=== PATIENT | female | born 1985 | race Caucasian/White ===

== ENCOUNTER → 2018-04-09 11:50 | Outpatient (CLI) | payer MEDICAID, SELFPAY ==
[2018-04-09 13:56] LABS: Absolute Lymphocyte Count 3.28 X10^3/ul (0.83-4.51); Absolute Neutrophil Count 7.2 X10^3/uL (2.0-7.7); Basophil# 0.03 X10^3/uL; Basophil% 0.3 % (0-1); Eosinophil# 0.28 X10^3/uL; Eosinophils% 2.4 % (0-5); Hematocrit 42.1 % (37-47); Hemoglobin 14.1 g/dl (12.0-15.0); Lymphocyte # 3.28 X10^3/ul (4.0); Lymphocyte % 28.5 % (19-41); Mean Corp Hgb Conc 33.5 g/gl (32-36); Mean Corpuscular Hgb 29.6 pg (27.0-32.0); Mean Corpuscular Volume 88.3 fL (81-99); Mean Platelet Vol. 9.8 fl (6.2-12.0); Monocyte# 0.71 X10^3/uL; Monocyte% 6.2 % (0-10); Neutrophil # 7.19 X10^3/uL (2.7-7.7); Neutrophil % 62.4 % (47-70); POSITIVE COUNT NO; POSITIVE DIFFERENTIAL NO; POSITIVE MORPHOLOGY NO; Platelet Count 423 K/mm3 (150-450); RBC Distribution Width CV 12.7 % (11.6-14.6); RBC Distribution Width SD 40.9 fl (35.1-43.9); Red Blood Count 4.77 M/mm3 (4.2-5.4); White Blood Count 11.5 K/mm3 (4.4-11.0)
[2018-04-09 14:39] LABS: Anion Gap 7 (5-15); BUN 6 mg/dL (7-18); BUN/Creat Ratio 7.7 RATIO (10-20); Calcium,Total 9.2 mg/dL (8.5-10.1); Chloride 108 mmol/L (98-107); Creatinine, Serum 0.78 mg/dL (0.55-1.02); EST Glomerular Filtration Rate 91 mL/min (>60); Est Glom Filt Rate - Afr Amer 111 mL/min (>60); Ferritin 93 ng/mL (8-252); Glucose 84 mg/dL (74-106); Iron 55 ug/dL (50-170); Potassium 3.9 mmol/L (3.5-5.1); Sodium Level 141 mmol/L (136-145); Thyroid Stim Hormone (TSH) 1.46 uIU/mL (0.358-3.74)
== END ==
PROVIDERS: Visit Provider Family Medicine
DX: D50.9 Iron deficiency anemia, unspecified (principal); N92.6 Irregular menstruation, unspecified; G25.81 Restless legs syndrome; R31.9 Hematuria, unspecified; R10.2 Pelvic and perineal pain
CPT/HCPCS: 36415; 80048; 82728; 83540; 84443; 85025; 87086

== ENCOUNTER → 2018-06-24 13:02 | Outpatient (CLI) | payer MEDICAID, SELFPAY ==
[2018-06-24 15:07] LABS: M R Staph aureus DNA By PCR Negative (Negative); Probe Check PASS; Specimen Processing Control PASS
== END ==
PROVIDERS: Family Provider Family Medicine; PCP Family Medicine; Visit Provider Family Medicine
DX: Z20.818 Contact with and (suspected) exposure to other bacterial communicable diseases (principal)
CPT/HCPCS: 87641

== ENCOUNTER 2018-07-02 02:57 | Emergency (ER) | payer MEDICAID, SELFPAY ==
[2018-07-02 02:57] VITALS: BP 117/62; PULSE 71; RESP 18; TEMP 36.8; O2SAT 99; BMI 40.2
--- NOTE | 2018-07-02 03:52 | ED.VIS.GEN ---
History of Present Illness Chief Complaint: Dental Informant: Patient Onset: Weeks - 2+ Context: Gradual Onset Timing: Continuous Quality: ache/throb Location: right maxillary molar Current Severity: Severe Maximum Severity: Severe Worsened by: eating, palpation, worse after root canal yesterday by dentist Relieved by: nothing Associated Symptoms: swelling in right face Narrative: Has seen dentist several times for this painful tooth in the past couple weeks. Had a root canal yesterday, pain is worse. Placed on clindamycin by her dentist for this tooth being infected and has been on it for 2 days, she thinks it is 300 mg twice a day but unknown for how many days. Past Medical History - Allergies and Home Meds Allergies/Adverse Reactions: Allergies No Known Allergies Allergy (Verified 07/02/18 03:00) Primary Care Physician: Raoul Hsu DO [Primary Care Provider] - Past Medical History: None Smoking Status: Current every day smoker Review of Systems General: Denies: Chills, Fever ENT: Reports: - - Right maxillary dental pain. Right facial swelling.. Denies: Bilateral ear pain, Rhinorrhea, Sore throat Respiratory: Denies: Dyspnea, Cough Gastrointestinal: Denies: Nausea, Vomiting Physical Exam Vital Signs/Narrative: Vital Signs Temp Pulse Resp BP Pulse Ox 07/02/18 02:57 98.3 F 71 18 117/62 99 Inital Vital Signs reviewed: Yes General: Well nourished, Well developed Head: Normocephalic, Atraumatic Eyes: Perrl, EOMI ENT: Moist mucous membranes, No rhinorrhea, - - Mild right facial swelling, nonfocal. Mild trismus. No fluctuance or palpable collection. Tender tooth #2, I believe. I do not think it is a wisdom tooth. It appears to have a ceramic filling within it. There is no gingival abnormality or bleeding or any other gross abnormality on inspection of the tooth. No parotid tenderness or discharge from Stensen's duct.. Negative for: Sinus tenderness Neck: Supple, - - Mild right preauricular lymphadenopathy that is tender Respiratory: No distress Neurological: Alert, Oriented x3, Cranial nerves II-XII grossly intact, Normal Strength, Normal Sensation, Normal Gait Psychological: Normal affect Diagnostic/Tx/Re-eval - Medical Decision Making I do not know how many days that she is on clindamycin, but I recommend trying to increase the frequency to 3 times daily if she is able. I gave her a dose of 300 mg here. Oars shows no recent narcotics, given a short course of Townsend for pain and advised to follow-up with her dentist. ED Disposition - Plan for ED Patient: Disposition: Home or Assisted Living Chief Complaint: Dental Diagnosis: Odontalgia, Dental infection Instructions: ED Tooth Pain, ED Cavity Dental Prescriptions: Hydrocodone/Acetaminophen [[place] 5-325 Tablet] 1 - 2 ea PO 4X/DAY PRN PRN 3 Days #12 tab PRN Reason: Pain Referrals: Dentist,Your [STAFF PHYSICIAN] - As soon as possible
[2018-07-02] MEDS: Clindamycin HCl 150 MG Capsule 300 MG PO (03:59)
[2018-07-02] MEDS: HYDROcodone Bitartrate/Apap 5/325 Tablet PO (03:59)
[2018-07-02] MEDS: Naproxen 500 MG Tablet PO (03:59)
[2018-07-02 04:04] VITALS: BP 117/71; PULSE 71; RESP 18
== END 2018-07-02 04:05 | disposition home or self-care (01) ==
PROVIDERS: Emergency Provider Emergency Medicine; Family Provider Family Medicine; PCP Family Medicine
DX: K04.7 Periapical abscess without sinus (principal); K08.89 Other specified disorders of teeth and supporting structures; Z98.818 Other dental procedure status; F17.200 Nicotine dependence, unspecified, uncomplicated
CPT/HCPCS: 99283

== ENCOUNTER 2019-09-06 07:10 | Inpatient (IN) | payer MEDICAID, SELFPAY ==
[2019-09-06 08:26] VITALS: BMI 40.8
[2019-09-06] MEDS: Lactated Ringers 1,000 ML 50 ML IV (09:30)
[2019-09-06 10:03] LABS: Absolute Lymphocyte Count 1.98 X10^3/uL (0.83-4.51); Absolute Neutrophil Count 10.1 X10^3/uL (2.0-7.7); Basophil# 0.03 X10^3/uL; Basophil% 0.2 % (0-1); Eosinophil# 0.27 X10^3/uL; Eosinophils% 2.1 % (0-5); Hematocrit 34.4 % (37-47); Hemoglobin 11.5 g/dL (12.0-15.0); Lymphocyte # 1.98 X10^3/ul (4.0); Lymphocyte % 15.1 % (19-41); Mean Corp Hgb Conc 33.4 g/dL (32-36); Mean Corpuscular Hgb 29.3 pg (27.0-32.0); Mean Corpuscular Volume 87.5 fL (81-99); Mean Platelet Vol. 9.5 fl (6.2-12.0); Monocyte# 0.66 X10^3/uL; NRBC Flagged by Analyzer 0 % (0-5); Neutrophil # 10.11 X10^3/uL (2.7-7.7); Neutrophil % 77.1 % (47-70); Platelet Count 383 K/mm3 (150-450); RBC Distribution Width CV 14.2 % (11.6-14.6); Red Blood Count 3.93 M/mm3 (4.2-5.4); White Blood Count 13.1 K/mm3 (4.4-11.0)
[2019-09-06] MEDS: 0.9% Normal Saline 100 ML IV.SOLN. IY (11:10)
[2019-09-06] MEDS: Oxytocin 30 units/NS 500 ml 30 UNITS/500 ML IV.SOLN IV (13:00)
--- NOTE | 2019-09-06 13:25 | PCM.PN.BLA ---
Progress Note S: Patient comfortable O: cvx - /-2 AROM clear fluid fhts 135 with mod variability, accels tocos irregular A&P: continue induction - just started pitocin
[2019-09-06] MEDS: Lactated Ringers 500 ML 999 ML IV (13:27)
[2019-09-06] MEDS: fentaNYL-bupivacaine (epidural) 100 ML BAG EPIDURAL ×3 (14:11→23:16)
[2019-09-06] MEDS: Lactated Ringers 1,000 ML 200 ML IV ×2 (18:14→23:15)
[2019-09-06] MEDS: Acetaminophen 325 MG Tablet PO (23:11)
[2019-09-07] MEDS: fentaNYL-bupivacaine (epidural) 100 ML BAG EPIDURAL ×3 (04:16→17:20)
[2019-09-07] MEDS: Lactated Ringers 1,000 ML 200 ML IV ×2 (04:16→09:28)
--- NOTE | 2019-09-07 08:29 | PCM.HP.OB ---
History Date of Admission: 09/06/19 Final YOUNG: 09/11/19 Final YOUNG Source: US <20 weeks Gestational age: 39 Weeks and 3 Days History of this : This is a 33 year-old, G4, P3 at 39-3/7 weeks gestation for induction of labor due to maternal discomfort, tobacco use in , and maternal obesity with BMI of 40. She denies any gross vaginal bleeding or leaking of fluid. She is had good movement. This has been complicated by an abnormal 1 hour, but she had a normal 3-hour GTT, she has a history of depression, abnormal Pap smears, migraines, she smoked throughout the , she has a history of eating disorder and also history of THC use in the past but denied any use during . Allergies No Known Allergies Allergy (Verified 09/06/19 08:27) Home Medications: Home Medications Cetirizine HCl [All Day Allergy] 10 mg PO DAILY 07/02/18 Citalopram [Celexa] 20 mg PO DAILY 07/02/18 Clindamycin [Cleocin] 300 mg PO BID 07/02/18 Hydrocodone/Acetaminophen [[place] 5-325 Tablet] 1 - 2 ea PO 4X/DAY PRN PRN 3 Days #12 tab 07/02/18 Omeprazole 20 mg PO DAILY 07/02/18 Ropinirole HCl [Requip] 0.25 mg PO DAILY 07/02/18 Sertraline HCl [Zoloft] 100 mg PO DAILY 07/02/18 Varenicline [Chantix] 1 mg PO BID 07/02/18 Smoking Status: Current every day smoker Alcohol: None Number of Fetus(es): 1 NST - FHR Rate Baby A Baseline: normal Variability:: Moderate Accelerations:: 15 x 15 FHR Category:: Category I - upon admission History Past Pregnancies: Past Pregnancies Delivery Date Name GA/Weeks Outcome Route Weight Gender Labor Length Anesthesia Delivery Location Provider FOB Expected Delivery Method: Spontaneous Vaginal Review of Systems Constitutional: Denies: Chills, Fever Eyes: Denies: Blurred vision Cardiovascular: Denies: Chest Pain Respiratory: Reports: Cough - chronic. Denies: Shortness of Breath Gastrointestinal: Reports: Dyspepsia. Denies: Diarrhea Genitourinary: Denies: Dysuria Neurological: Denies: Balance problems, Double vision, Slurred speech, Confusion Psychiatric: Reports: Anxiety, Depression Physical Exam General: Alert, Cooperative, No apparent distress Cardiovascular: Regular rate Lungs: Normal air movement Abdomen: Soft, Non-Distended, Gravid, Appropriate for Gestational Age Extremities:: Deep tendon reflexes - 2+, Other - edema2+ IT INFRASTRUCTURE CONSULTANT: Normal external genitalia Estimated gestational size: Appropriate for gestational size Presentation: Cephalic Cervix Dilation (cm): 1.5 - upon admission Station: -3 Effacement (%): 60 Assessment/Plan This is a 33 year-old, 4 para 3 at 39-3/7 weeks gestation for induction of labor due to maternal obesity and tobacco use in . Risk benefits and alternatives to Nazario, Pitocin and artificial rupture membranes induction been discussed with patient, questions were answered to her satisfaction and consent was signed. She may have epidural, Nubain or nitrous oxide as needed for pain control. Mean weight is less than 4500 g clinically and pelvis clinically adequate to expect vaginal delivery. Procedure note: At approximately noon on 09/06/2019, Nazario catheter was placed over the stylette into the internal cervical loss and inflated to 30 cc with normal saline. The patient the fetus tolerated this well. Placemen over internal cervical loss was confirmed.
[2019-09-07] MEDS: Oxytocin 30 units/NS 500 ml 30 UNITS/500 ML IV.SOLN 26 UNITS IV (11:46)
[2019-09-07 15:34] LABS: Amphetamine Urine VISTA NEGATIVE (<1000 ng/mL); Barbiturate Urine VISTA NEGATIVE (< 200 ng/mL); Benzodiazepine Urine VISTA NEGATIVE (< 200 ng/mL); Cocaine Urine VISTA NEGATIVE (< 300 ng/mL); Ecstacy Urine VISTA NEGATIVE (< 500 ng/mL); Methadone Urine VISTA NEGATIVE (< 300 ng/mL); PCP Urine VISTA NEGATIVE (< 25 ng/mL); THC Urine VISTA NEGATIVE (< 50 ng/mL); Vista UDS pH Range 6
[2019-09-07] MEDS: Lactated Ringers 1,000 ML 100 ML IV (15:39)
[2019-09-07] MEDS: Oxytocin 30 units/NS 500 ml 30 UNITS/500 ML IV.SOLN 334 UNITS IV (18:13)
--- NOTE | 2019-09-07 18:36 | PCM.OPRPT ---
Vaginal Delivery Maternal Presentation: Medically Indicated Induction Method of Induction: Pitocin, Nazario Bulb, Amniotomy Medical Reason for Induction: - - maternal obesity, bmi 40, tob use in Amniotic Membrane Rupture Type: Artificial Amniotic Fluid Description: Clear Final YOUNG: 09/11/19 Final YOUNG Source: US <20 weeks Gestational age: 39 Weeks and 3 Days Date of Procedure: 09/07/19 Surgery/ Procedure Performed: Spontaneous Vaginal Delivery Type of Anesthesia: Epidural Description of Procedure: I evaluated the patient, she was found to be an anterior lip and 0 station. She pushed once and was able to push past the anterior lip and it stayed retracted. A vigorous male infant was delivered NEVA over a second-degree perineal laceration. The remainder the was delivered with maternal pushing and gentle traction only in less than 15 seconds. The Pitocin infusion was initiated for active management of the third stage. The cord was clamped and cut after 1 minute. The infant was attended to by the waiting nursing staff. The placenta was delivered spontaneously and intact. The cervix and vagina were intact. The second-degree perineal laceration was repaired with 3-0 Vicryl suture in a running standard fashion. Sponge and needle counts were correct. A vaginal sweep was completed by me. Presentation: NEVA Placental Delivery Description: Spontaneous Placenta Disposition: [facility] Cord Vessel Description: 3 Vessels Cord Entanglement: None Drain: Nazario to straight drain Estimated Blood Loss: 300 A gender: Female (1 minute): 8 (5 minute): 9 Episiotomy Description: None Laceration: 2nd degree - perineal Medications given after delivery: IV Pitocin Complications: None
[2019-09-07 20:28] VITALS: BP 132/76; PULSE 100; RESP 18; TEMP 36.6
[2019-09-07] MEDS: Naproxen 250 MG Tablet 500 MG PO (20:41)
[2019-09-07] MEDS: 0.9% Saline Lock 10 ML Syringe IV (20:41)
[2019-09-08] VITALS: BP 107/55; PULSE 84; RESP 16; TEMP 36
[2019-09-08 04:07] VITALS: BP 121/61; PULSE 82; RESP 16; TEMP 36
[2019-09-08 05:33] LABS: Absolute Lymphocyte Count 2.29 X10^3/uL (0.83-4.51); Absolute Neutrophil Count 15.7 X10^3/uL (2.0-7.7); Basophil# 0.05 X10^3/uL; Basophil% 0.3 % (0-1); Eosinophils% 1.5 % (0-5); Lymphocyte # 2.29 X10^3/ul (4.0); Lymphocyte % 11.8 % (19-41); Mean Corp Hgb Conc 32.3 g/dL (32-36); Mean Corpuscular Hgb 29.1 pg (27.0-32.0); Mean Corpuscular Volume 90.1 fL (81-99); Mean Platelet Vol. 9.5 fl (6.2-12.0); Monocyte# 0.94 X10^3/uL; Monocyte% 4.8 % (0-10); NRBC Flagged by Analyzer 0 % (0-5); Neutrophil # 15.71 X10^3/uL (2.7-7.7); Platelet Count 322 K/mm3 (150-450); RBC Distribution Width CV 14.2 % (11.6-14.6); RBC Distribution Width SD 46.3 fl (35.1-43.9); Red Blood Count 3.44 M/mm3 (4.2-5.4); White Blood Count 19.4 K/mm3 (4.4-11.0)
--- NOTE | 2019-09-08 08:01 | PCM.PN.OB ---
Subjective: No complaints - Physical Exam Vitals/I&O's: Vital Signs Temp Pulse Resp BP 96.8 F L 82 16 121/61 H 09/08/19 04:07 09/08/19 04:07 09/08/19 04:07 09/08/19 04:07 Oxygen Delivery Method Room Air Weight: 223 lb Body Mass Index (BMI) 40.8 Intake and Output for Last 24 Hours 09/06/19 09/07/19 09/08/19 23:59 23:59 23:59 Intake Total 1783.94 / 1783.94 4127.77 / 4127.77 Output Total 1050 / 1050 1200 / 1200 Balance 733.94 / 733.94 2927.77 / 2927.77 General: Alert, Oriented x3 Abdomen: Soft, Non Tender, Non-Distended - ff mid & below umb Extremities: No Calf Tenderness Laboratory Results 09/07/19 14:40: Urine Opiates Screen NEGATIVE, Urine Methadone Screen NEGATIVE, Ur Barbiturates Screen NEGATIVE, Ur Phencyclidine Scrn NEGATIVE, Ur Amphetamines Screen NEGATIVE, U Methamphetamin-MDMA NEGATIVE, U Benzodiazepines Scrn NEGATIVE, Urine Cocaine Screen NEGATIVE, U Cannabinoids Screen NEGATIVE, Ur Drug Screen Comment 09/08/19 05:00: WBC 19.4 H, RBC 3.44 L, Hgb 10.0 L, Hct 31.0 L, MCV 90.1, MCH 29.1, MCHC 32.3, RDW Std Deviation 46.3 H, RDW Coeff of Gordon 14.2, Plt Count 322, MPV 9.5, Immature Gran % (Auto) 0.600, Neut % (Auto) 81.0 H, Lymph % (Auto) 11.8 L, [place] % (Auto) 4.8, Eos % (Auto) 1.5, Baso % (Auto) 0.3, Absolute Neuts (auto) 15.7 H, Absolute Lymphs (auto) 2.29, Nucleated RBC % 0 Current Medications Acetaminophen (Tylenol) 1,000 mg PO Q8H PRN PRN PRN Reason: Pain Score 1-3/10 Bisacodyl (Dulcolax) 10 mg RECTAL UD PRN PRN Reason: If no BM Dibucaine (Dibucaine) 1 applic TOPICAL TID PRN PRN; Protocol PRN Reason: Discomfort Hydrocortisone (Hytone) 1 applic TOPICAL TID PRN PRN; Protocol PRN Reason: Discomfort Loratadine (Claritin) 10 mg PO DAILY JORDI Methylergonovine Maleate (Methergine) 0.2 mg IM X1 PRN PRN Reason: Excess bleeding/uterine atony Naproxen (Naprosyn) 500 mg PO Q8H PRN PRN PRN Reason: Pain Score 1-3/10 Last Admin: 09/07/19 20:41 Dose: 500 mg Documented by: Ondansetron HCl (Zofran) 4 mg IV Q4H PRN PRN PRN Reason: Nausea Pantoprazole Sodium (Protonix) 20 mg PO DAILY JORDI Pramipexole Dihydrochloride (Mirapex) 0.125 mg PO DAILY JORDI Prochlorperazine Edisylate (Compazine Iv) 10 mg IV Q6H PRN PRN PRN Reason: NAUSEA/VOMITING Senna/Docusate Sodium (Senokot-S, Sherice-Colace) 1 - 2 tablet PO DAILY PRN PRN PRN Reason: Constipation Simethicone (Mylicon) 80 mg PO PCHS PRN PRN Reason: Indigestion/Stomach pain Sodium Chloride () 5 - 15 ml IV UD PRN PRN Reason: SALINE FLUSH Last Admin: 09/07/19 20:41 Dose: 10 ml Documented by: Medical Necessity - Tobacco Use Smoking Status: Current every day smoker Assessment/Plan PPD#1 D/c home tonight per patient request PPBC - patient desires nexplanon but doesn't want her family to know. Will have my office call her & schedule a 2 week check-up. Plan to place nexplanon then so it can be done privately.
--- NOTE | 2019-09-08 08:05 | DCINST_ITS ---
Discharge Diet: No Restrictions Discharge Activity: May Drive, May Shower May resume sexual activity in: 6 weeks Weight Bearing Status: Weight bearing as tolerated Additional Instructions: If you experience any of the following, contact your healthcare provider. * Bleeding that soaks a pad every hour for 2 hours * Fever 100.4 or higher * Unrelieved incision or abdominal pain * Swelling, redness, discharge or bleeding from your incision or episiotomy site * Your incision begins to separate * Problems urinating (including inability to urinate or burning while urinating). * Visual changes * Severe headache * Flu-like symptoms * Pain or redness in one of both of your breasts * Pain, warmth, tenderness or swelling in your legs, especially the calf area * Frequent nausea and vomiting * Symptoms of depression or anxiety If you experience any of the following, call 911 or go to the nearest Emergency Room. * Chest pain * Problems breathing * Seizure activity * Partial or complete paralysis of a body part, slurred speech, weakness or drooping of the face, or a sudden inability to walk or hold your balance Allergies/Adverse Reactions: Allergies No Known Allergies Allergy (Verified 09/06/19 08:27) Medications to take at Discharge Cetirizine HCl [All Day Allergy] 10 mg PO DAILY 07/02/18 Citalopram [Celexa] 20 mg PO DAILY 07/02/18 Clindamycin [Cleocin] 300 mg PO BID 07/02/18 Hydrocodone/Acetaminophen [[place] 5-325 Tablet] 1 - 2 ea PO 4X/DAY PRN PRN 3 Days #12 tab 07/02/18 Omeprazole 20 mg PO DAILY 07/02/18 Ropinirole HCl [Requip] 0.25 mg PO DAILY 07/02/18 Sertraline HCl [Zoloft] 100 mg PO DAILY 07/02/18 Varenicline [Chantix] 1 mg PO BID 07/02/18 Primary Care Physician: Raoul Hsu DO [Primary Care Provider] - Test Results: Test results from this visit will be discussed in further detail at your follow- up appointment, if applicable.
--- NOTE | 2019-09-08 08:05 | PCM.DCVAG ---
Discharge Diet: No Restrictions Discharge Activity: May Drive, May Shower May resume sexual activity in: 6 weeks Weight Bearing Status: Weight bearing as tolerated Additional Instructions: If you experience any of the following, contact your healthcare provider. Bleeding that soaks a pad every hour for 2 hours Fever 100.4 or higher Unrelieved incision or abdominal pain Swelling, redness, discharge or bleeding from your incision or episiotomy site Your incision begins to separate Problems urinating (including inability to urinate or burning while urinating). Visual changes Severe headache Flu-like symptoms Pain or redness in one of both of your breasts Pain, warmth, tenderness or swelling in your legs, especially the calf area Frequent nausea and vomiting Symptoms of depression or anxiety If you experience any of the following, call 911 or go to the nearest Emergency Room. Chest pain Problems breathing Seizure activity Partial or complete paralysis of a body part, slurred speech, weakness or drooping of the face, or a sudden inability to walk or hold your balance Allergies/Adverse Reactions: Allergies No Known Allergies Allergy (Verified 09/06/19 08:27) Medications to take at Discharge Cetirizine HCl [All Day Allergy] 10 mg PO DAILY 07/02/18 Citalopram [Celexa] 20 mg PO DAILY 07/02/18 Clindamycin [Cleocin] 300 mg PO BID 07/02/18 Hydrocodone/Acetaminophen [[place] 5-325 Tablet] 1 - 2 ea PO 4X/DAY PRN PRN 3 Days #12 tab 07/02/18 Omeprazole 20 mg PO DAILY 07/02/18 Ropinirole HCl [Requip] 0.25 mg PO DAILY 07/02/18 Sertraline HCl [Zoloft] 100 mg PO DAILY 07/02/18 Varenicline [Chantix] 1 mg PO BID 07/02/18 Primary Care Physician: Raoul Hsu DO [Primary Care Provider] - Test Results: Test results from this visit will be discussed in further detail at your follow-up appointment, if applicable.
[2019-09-08 08:45] VITALS: BP 125/62; PULSE 71; RESP 18; TEMP 36.4
[2019-09-08] MEDS: Naproxen 250 MG Tablet 500 MG PO (11:01)
[2019-09-08 11:27] LABS: Hepatitis C Antibody Non-Reactive (Nonreactive)
[2019-09-08 12:15] VITALS: BP 134/65; PULSE 82; RESP 16; TEMP 35.7
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
[2019-09-08 18:05] VITALS: BP 115/63; PULSE 87; RESP 18; TEMP 36.6
[2019-09-08] MEDS: Dibucaine 30 GM Tube 1 APPLIC TOPICAL (18:17)
== END 2019-09-08 19:40 | disposition home or self-care (01) | DRG 560 ==
PROVIDERS: Obstetrics & Gynecology; Admitting Provider Obstetrics & Gynecology; Family Provider Family Medicine; PCP Family Medicine; Referring Provider Obstetrics & Gynecology; Visit Provider Obstetrics & Gynecology
DX: O99.214 Obesity complicating childbirth (principal); E66.9 Obesity, unspecified; O70.1 Second degree perineal laceration during delivery; O99.334 Smoking (tobacco) complicating childbirth; F17.210 Nicotine dependence, cigarettes, uncomplicated; O99.52 Diseases of the respiratory system complicating childbirth; J45.909 Unspecified asthma, uncomplicated; O99.344 Other mental disorders complicating childbirth; F32.9 Major depressive disorder, single episode, unspecified; F41.9 Anxiety disorder, unspecified; O99.62 Diseases of the digestive system complicating childbirth; K21.9 Gastro-esophageal reflux disease without esophagitis; Z3A.39 39 weeks gestation of pregnancy; Z37.0 Single live birth
CPT/HCPCS: 59025; 59050; 80307; 85025; 86803; 86850; 86900; 86901; 99218; J7120; A4216; G0378

== ENCOUNTER 2019-09-25 13:55 | Emergency (ER) | payer MEDICAID, SELFPAY ==
[2019-09-25 13:57] VITALS: BP 160/98; PULSE 106; RESP 16; TEMP 36.8; O2SAT 97
[2019-09-25 14:20] VITALS: BP 144/90; PULSE 87; RESP 14; O2SAT 97
[2019-09-25] MEDS: Ondansetron 4 MG/2 ML Vial IV (15:23)
[2019-09-25] MEDS: Morphine 4 MG/ML Syringe IV (15:23)
[2019-09-25 15:32] LABS: Absolute Lymphocyte Count 3.14 X10^3/uL (0.83-4.51); Absolute Neutrophil Count 9.9 X10^3/uL (2.0-7.7); Basophil# 0.07 X10^3/uL; Basophil% 0.5 % (0-1); Eosinophil# 0.41 X10^3/uL; Eosinophils% 2.9 % (0-5); Hematocrit 27.3 % (37-47); Hemoglobin 8.6 g/dL (12.0-15.0); Lymphocyte # 3.14 X10^3/ul (4.0); Lymphocyte % 21.9 % (19-41); Mean Corp Hgb Conc 31.5 g/dL (32-36); Mean Corpuscular Hgb 28.4 pg (27.0-32.0); Mean Corpuscular Volume 90.1 fL (81-99); Monocyte# 0.66 X10^3/uL; Monocyte% 4.6 % (0-10); NRBC Flagged by Analyzer 0 % (0-5); Neutrophil # 9.92 X10^3/uL (2.7-7.7); Neutrophil % 69.1 % (47-70); Platelet Count 584 K/mm3 (150-450); RBC Distribution Width SD 45.1 fl (35.1-43.9); Red Blood Count 3.03 M/mm3 (4.2-5.4); White Blood Count 14.4 K/mm3 (4.4-11.0)
--- NOTE | 2019-09-25 15:40 | ED.VISSUMM ---
- ER Visit Summary Date of Service: 09/25/19 Chief Complaint: Hemorrhoids History of Present Illness: The patient is a 33 F presenting with hemorrhoids. Patient states she had hemorrhoids throughout her . They became painful just yesterday. She delivered normal spontaneous vaginal delivery September 07. She had a D&C last weekend. She states she has had mild vaginal bleeding. She states she has had headaches since her delivery. She has been taking Tylenol and naproxen. She has a history of migraine headaches and states this feels similar. Denies fever. Denies other complaints. Physical Examination: Vitals are stable. Blood pressure 144/90. Patient is afebrile. Alert no acute distress. HEENT exam is unremarkable. Neck is supple. No meningismus Lungs are clear and equal bilaterally. Heart is regular rate and rhythm. Abdomen is soft nontender nondistended. Rectal external hemorrhoids, thrombosed Extremities are unremarkable. Skin is warm and dry. No focal neurologic deficit. Remainder of exam is unremarkable. Emergency Department Course and Treatment: She was given morphine, Zofran IV. CBC shows white count 14.4, hemoglobin 8.6, platelet 584. Chemistries unremarkable. UA shows over 100 white blood cells, 10-25 red blood cells. Urine culture was sent. Hemorrhoid was anesthetized with lidocaine. Incised with 11 blade. Clot was removed. Packing was placed. Patient tolerated this well. She continues to complain of headache and was given Reglan, Benadryl IV with improvement. Repeat blood pressure 130/82. Advised to follow-up with Dr. Mar and her FISHERIES SPECIALIST. Advised return to ED if worsening complaints. Disposition: Discharge home Impression: Thrombosed hemorrhoid, headache, UTI This note was generated with [employer] dictation software. It may contain incorrect words, spelling, and punctuation that were not noted in review of the chart prior to signing ED Disposition - Plan for ED Patient: Instructions: Understanding Urinary Tract Infections (UTIs), HEADACHE, Unspecified, Hemorrhoids Prescriptions: Cephalexin [Keflex] 500 mg PO Q12 #14 cap Prescription Printed Referrals: Bo Mar MD [STAFF PHYSICIAN] - Raoul Hsu DO [Primary Care Provider] - Edith Dickey MD [STAFF PHYSICIAN] -
[2019-09-25 15:47] LABS: ALB/GLOB Ratio 0.8 RATIO (0.9-2.4); AST(SGOT) 35 U/L (15-37); Alanine Aminotransfer ALT/SGPT 39 U/L (13-56); Albumin, Serum 3.3 g/dL (3.2-5.0); Alkaline Phosphatase 78 U/L (45-117); Anion Gap 7 (5-15); BUN 9 mg/dL (7-18); BUN/Creat Ratio 10.3 RATIO (10-20); Calcium,Total 8.9 mg/dL (8.5-10.1); Chloride 110 mmol/L (98-107); Creatinine, Serum 0.88 mg/dL (0.55-1.02); EST Glomerular Filtration Rate 80 mL/min (>60); Est Glom Filt Rate - Afr Amer 96 mL/min (>60); Estimated Creatinine Clearance 3.44 ml/min; Globulin 4.2 g/dL (2.2-4.2); Glucose 84 mg/dL (74-106); Potassium 4.5 mmol/L (3.5-5.1); Protein, Total 7.5 g/dL (6.4-8.2); Sodium Level 142 mmol/L (136-145)
[2019-09-25 16:15] VITALS: BP 157/98; PULSE 78; RESP 16; O2SAT 98
[2019-09-25] MEDS: Metoclopramide 10 MG/2 ML Vial 5 MG IV (16:37)
[2019-09-25] MEDS: DiphenhydrAMINE 50 MG/ML Syringe 25 MG IV (16:37)
[2019-09-25 16:51] LABS: Bacteria 0 SEEN /hpf (None Seen); Mucous, Urine 0 SEEN /hpf (<or=2+)
[2019-09-25 16:56] LABS: Color, Urine Red (Yellow); Glucose, Dipstick Normal (Normal); Ketone-Dipstick Negative (Negative); Leukocyte Esterase-Dipstick 500 /ul (Negative); Nitrite-Dipstick Negative (Negative); Occult Blood-Urine 250 /ul (Negative); Protein-Dipstick 100 mg/dl (Negative); Urine Bilirubin Dipstick Negative (Negative); Urine Clarity Cloudy (Clear); Urine Urobilinogen Normal (Normal)
[2019-09-25 17:07] VITALS: BP 130/82
[2019-09-25 17:07] LABS: Red Blood Cells-Urine 10-25 SEEN /hpf (0-5); Squamous Epithelial Cells - UA 0-5 SEEN /hpf (5-10); Transitional Epithelial - Ur 0-5 SEEN /hpf (0-5); White Blood Cells >100 SEEN /hpf (0-5)
--- NOTE | 2019-09-25 17:34 | ED.DEP ---
ED Disposition - Plan for ED Patient: Instructions: Hemorrhoids, HEADACHE, Unspecified, Understanding Urinary Tract Infections (UTIs) Prescriptions: Cephalexin [Keflex] 500 mg PO Q12 #14 capsule Referrals: Raoul Hsu DO [Primary Care Provider] - Edith Dickey MD [STAFF PHYSICIAN] - Bo Mar MD [STAFF PHYSICIAN] -
== END 2019-09-25 18:05 | disposition home or self-care (01) ==
LOC: ED 15:09
PROVIDERS: Emergency Provider Emergency Medicine; Family Provider Family Medicine; PCP Family Medicine
DX: K64.5 Perianal venous thrombosis (principal); R51 Headache; N39.0 Urinary tract infection, site not specified; F17.200 Nicotine dependence, unspecified, uncomplicated
CPT/HCPCS: 46083; 10060; 80053; 81001; 85025; 87086; 87088; 96374; 96375; 99283; A4216; J2405

== ENCOUNTER → 2022-07-01 | Outpatient (CLI) | payer MEDICAID, SELFPAY ==
--- NOTE | 2022-07-01 10:01 | RAD_ITS ---
INDICATION: COCCYDYNIA EXAMINATION/TECHNIQUE: X-RAY - XR Sacrum/Coccyx Min 2 Views COMPARISON: None. FINDINGS: SACRUM/COCCYX: No displaced fracture, destructive or sclerotic lesions. Degenerative changes seen. Note that overlapping bowel shadows may however obscure fine detail in the frontal view. SACRO-ILIAC JOINTS: The articular structures are unremarkable. Symmetrical degenerative changes seen, no evidence of erosive changes. SOFT TISSUES: No soft tissue swelling or gas. RAD/Sacrum-Coccyx min 2 Views IMPRESSION: No acute osseous abnormality. Electronically Signed: Bryce Vasquez MD at 12:16 EDT ,
[2022-07-01 10:49] LABS: Absolute Lymphocyte Count 2.68 X10^3/uL (0.83-4.51); Absolute Neutrophil Count 7.3 X10^3/uL (2.0-7.7); Basophil# 0.05 X10^3/uL; Basophil% 0.5 % (0-1); Eosinophil# 0.15 X10^3/uL; Eosinophils% 1.4 % (0-5); Hematocrit 40.9 % (37-47); Hemoglobin 13.8 g/dL (12.0-15.0); Lymphocyte # 2.68 X10^3/ul (0.83-4.51); Lymphocyte % 24.9 % (19-41); Mean Corp Hgb Conc 33.7 g/dL (32-36); Mean Corpuscular Hgb 30.9 pg (27.0-32.0); Mean Corpuscular Volume 91.7 fL (81-99); Mean Platelet Vol. 9.7 fl (6.2-12.0); Monocyte% 5.6 % (0-10); NRBC Flagged by Analyzer 0 % (0-5); Neutrophil # 7.27 X10^3/uL (2.7-7.7); Neutrophil % 67.3 % (47-70); Platelet Count 346 K/mm3 (150-450); RBC Distribution Width CV 13.1 % (11.6-14.6); RBC Distribution Width SD 43.9 fl (35.1-43.9); Red Blood Count 4.46 M/mm3 (4.2-5.4); White Blood Count 10.8 K/mm3 (4.4-11.0)
[2022-07-01 11:24] LABS: Albumin, Serum 3.9 g/dL (3.2-5.0); BUN 9 mg/dL (7-18); BUN/Creat Ratio 11.6 RATIO (10-20); Creatinine, Serum 0.78 mg/dL (0.55-1.02); EST Glomerular Filtration Rate 90 mL/min (>60); Est Glom Filt Rate - Afr Amer 109 mL/min (>60); Glucose 86 mg/dL (74-106); Protein, Total 7.5 g/dL (6.4-8.2)
[2022-07-01 11:25] LABS: ALB/GLOB Ratio 1.1 RATIO (0.9-2.4); AST(SGOT) 11 U/L (15-37); Alanine Aminotransfer ALT/SGPT 16 U/L (13-56); Alkaline Phosphatase 62 U/L (45-117); Anion Gap 6 (5-15); Calcium,Total 9.2 mg/dL (8.5-10.1); Chloride 110 mmol/L (98-107); Ferritin 75 ng/mL (8-252); Globulin 3.6 g/dL (2.2-4.2); Iron 82 ug/dL (50-170); Potassium 3.5 mmol/L (3.5-5.1); Sodium Level 140 mmol/L (136-145); Thyroid Stim Hormone (TSH) 1.26 uIU/mL (0.358-3.74)
== END | disposition home or self-care (01) ==
LOC: LAB 09:51
PROVIDERS: PCP Family Medicine; Visit Provider Family Medicine
DX: Z00.00 Encounter for general adult medical examination without abnormal findings (principal); M53.3 Sacrococcygeal disorders, not elsewhere classified; R53.82 Chronic fatigue, unspecified; D64.9 Anemia, unspecified
CPT/HCPCS: 36415; 72220; 80053; 82728; 83540; 84443; 85025

== ENCOUNTER → 2022-12-04 | Outpatient (CLI) | payer MEDICAID, SELFPAY ==
[2022-12-04 12:12] LABS: Absolute Lymphocyte Count 2.46 X10^3/uL (0.83-4.51); Absolute Neutrophil Count 7.6 X10^3/uL (2.0-7.7); Basophil# 0.05 X10^3/uL; Basophil% 0.5 % (0-1); Eosinophil# 0.23 X10^3/uL; Eosinophils% 2.1 % (0-5); Hematocrit 42.8 % (37-47); Hemoglobin 14.3 g/dL (12.0-15.0); Lymphocyte # 2.46 X10^3/ul (0.83-4.51); Lymphocyte % 22.5 % (19-41); Mean Corp Hgb Conc 33.4 g/dL (32-36); Mean Corpuscular Hgb 31.1 pg (27.0-32.0); Mean Platelet Vol. 9.4 fl (6.2-12.0); Monocyte# 0.59 X10^3/uL; Monocyte% 5.4 % (0-10); NRBC Flagged by Analyzer 0 % (0-5); Neutrophil # 7.56 X10^3/uL (2.7-7.7); Neutrophil % 69.3 % (47-70); Platelet Count 301 K/mm3 (150-450); RBC Distribution Width CV 12.4 % (11.6-14.6); RBC Distribution Width SD 42.7 fl (35.1-43.9); White Blood Count 10.9 K/mm3 (4.4-11.0)
[2022-12-04 12:29] LABS: Ferritin 59 ng/mL (8-252); Iron 108 ug/dL (50-170); Thyroid Stim Hormone (TSH) 1.06 uIU/mL (0.358-3.74)
== END | disposition home or self-care (01) ==
LOC: BFHLAB 09:22
PROVIDERS: PCP Family Medicine; Visit Provider Family Medicine
DX: D64.9 Anemia, unspecified (principal); R68.89 Other general symptoms and signs
CPT/HCPCS: 36415; 82728; 83540; 84443; 85025

== ENCOUNTER → 2023-07-13 | Outpatient (CLI) | payer MEDICAID, SELFPAY ==
--- NOTE | 2023-07-13 12:31 | EKG12_ITS ---
Test Reason : PRE OP Blood Pressure : / mmHG Vent. Rate : 089 BPM Atrial Rate : 089 BPM P-R Int : 138 ms QRS Dur : 078 ms QT Int : 336 ms P-R-T Axes : 077 070 066 degrees QTc Int : 408 ms Normal sinus rhythm Normal ECG Confirmed by MARIUM KATHLEEN ([id number]), editor house organ SUGEY SEGURA ([id number]) on 07/28/2023 1:38:48 PM Referred By: Edith Dickey Confirmed By:MARIUM KATHLEEN
[2023-07-13 12:49] LABS: Mean Corp Hgb Conc 33.3 g/dL (32-36); Mean Corpuscular Hgb 31.3 pg (27.0-32.0); Mean Corpuscular Volume 93.8 fL (81-99); Mean Platelet Vol. 8.7 fl (6.2-12.0); Platelet Count 324 K/mm3 (150-450); RBC Distribution Width CV 12.4 % (11.6-14.6); RBC Distribution Width SD 43.2 fl (35.1-43.9); Red Blood Count 4.48 M/mm3 (4.2-5.4)
[2023-07-13 13:14] LABS: Anion Gap 5 (5-15); BUN 10 mg/dL (7-18); BUN/Creat Ratio 13.2 RATIO (10-20); Calcium,Total 9.1 mg/dL (8.5-10.1); Chloride 109 mmol/L (98-107); Creatinine, Serum 0.76 mg/dL (0.55-1.02); EST Glomerular Filtration Rate 92 mL/min (>60); Est Glom Filt Rate - Afr Amer 112 mL/min (>60); Glucose 104 mg/dL (74-106); Potassium 3.8 mmol/L (3.5-5.1); Sodium Level 140 mmol/L (136-145)
--- NOTE | 2023-07-13 15:14 | PCM.HP.BLA ---
History and Physical Date of Admission: 07/24/23 HPI: The patient is a 37 year old female presenting for pre-operative visit. She is scheduled for exam under anesthesia, Nexplanon removal, laparoscopic bilateral salpingectomy, for removal of Nexplanon and sterilization request on 07/24/2023. Procedure discussed along with risks, benefits and complications. Other alternatives discussed for management. Consent form signed? Yes. ? ? PAST MEDICAL HISTORY PAST MEDICAL HISTORY Diagnosis Date ? Anemia ? ? Anorexia ? ? ended 2002 ? Asthma ? ? Attention deficit disorder ? ? Atypical squamous cells of undetermined significance (ASCUS) on Papanicolaou smear of cervix 02/02/2019 ? 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 Dysthymic disorder ? ? Depression (non-psychotic) ? Obsessive-compulsive disorders ? ? PMH - PAST MEDICAL HISTORY OF ? ? Cutting ? depression ? ? Seizure (HCC) ? ? with anorexia as a teenager ? Unspecified asthma(493.90) ? ? ? PAST SURGICAL HISTORY PAST SURGICAL HISTORY Procedure Laterality Date ? CERVIX UTERI CONIZA LP ELCTRO EXCI ? 04/2020 ? CIN2 negative margins ? DILATION & CURETTAGE DX&/THER NONOBSTETRIC ? 09/18/2019 ? Patient had D&C for delayed PP hemorrhage & suspected retained POC's. ? INSERT INTRAUTERINE DEVICE ? 05/26/2008 ? Marbella Merino-removed ? TONSILLECTOMY PRIMARY/SECONDARY <AGE 14 ? ? ? Tonsillectomy ? ? ? CURRENT MEDICATIONS Current Outpatient Medications Medication Sig Dispense Refill ? etonogestrel (NEXPLANON) subdermal implant 68 mg 1 Each by SUBDERMAL route as directed. 1 Each 0 ? MEDICATION, NON-DATABASE Medical Marijuana ? ? ? escitalopram oxalate (LEXAPRO) 5 mg tablet Take 5 mg by mouth once daily. (Patient not taking: Reported on 07/13/2023) ? ? ? topiramate (TOPAMAX) 100 mg tablet Take 150 mg by mouth once daily. (Patient not taking: Reported on 07/13/2023) ? ? ? etonogestrel (NEXPLANON) 68 mg impl subdermal implant 68 mg by SUBDERMAL route. (Patient not taking: Reported on 07/13/2023) ? ? ? cetirizine HCl (ZYRTEC ORAL) Take by mouth. (Patient not taking: Reported on 07/13/2023) ? ? ? sennosides (LAXATIVE ORAL) Take by mouth. (Patient not taking: Reported on 08/29/2022) ? ? ? buPROPion SR (ZYBAN SR; WELLBUTRIN SR) 150 mg 12 hr tablet Take 150 mg by mouth twice daily. (Patient not taking: Reported on 07/13/2023) ? ? ? ferrous sulfate (IRON ORAL) Take 1 tablet by mouth once daily. (Patient not taking: Reported on 08/29/2022) ? ? ? melatonin 3 mg tablet Take 3 mg by mouth as needed. (Patient not taking: Reported on 08/29/2022) ? ? ? OMEPRAZOLE ORAL Take by mouth. (Patient not taking: Reported on 07/13/2023) ? ? ? ALBUTEROL INHALATION Inhale as instructed. (Patient not taking: Reported on 07/13/2023) ? ? ? No current facility-administered medications for this visit. ? ? ALLERGIES: Patient has no known allergies. ? PERSONAL HISTORY: SOCIAL HISTORY Social History ? Tobacco Use ? Smoking status: Every Day ? ? Packs/day: 2.00 ? ? Years: 24.00 ? ? Additional pack years: 0.00 ? ? Total pack years: 48.00 ? ? Types: Cigarettes ? Smokeless tobacco: Former ? ? Types: Chew Vaping Use ? Vaping Use: Former Substance Use Topics ? Alcohol use: Yes ? ? Comment: occasional ? Drug use: Not Currently ? ? Types: Marijuana ? ? Comment: Medical Marijuana ? FAMILY HISTORY: FAMILY HISTORY FAMILY HISTORY Problem Relation Age of Onset ? Cancer Mother ? ? CERVICAL ? Thyroid Mother ? ? Psychiatry Mother ? ? ANXIETY - ? Asthma Mother ? ? COPD Mother ? ? Alcohol/Drug Father ? ? No Known Problems Brother ? ? Alcohol/Drug Brother ? ? Alcohol/Drug Sister ? ? No Known Problems Sister ? ? Cancer Maternal Grandmother ? ? OVARIAN AND COLON ? Hypertension Maternal Grandmother ? ? No Known Problems Paternal Grandmother ? ? No Known Problems Paternal Grandfather ? ? Alcohol/Drug Brother ? ? No Known Problems Sister ? ? No Known Problems Sister ? ? Alcohol/Drug Brother ? ? Allergies Daughter ? ? No Known Problems Daughter ? ? No Known Problems Son ? ? ? REVIEW OF SYMPTOMS: GENERAL: denies fevers or chills ENDOCRINOLOGY: has not been on steroids Cardiology : denies palpitations or chest pain Respiratory: denies SOB or cough Hematology: denies history of prolonged bleeding or easy bruising or VTE Allergy: Denies history of personal or family history of allergy to anesthesia ? PHYSICAL EXAMINATION: ? VITALS: Blood pressure 102/60, pulse 78, resp. rate 16, height 5' 3 (1.6 m), weight 135 lb (61.2 kg), last menstrual period 06/07/2023, SpO2 98 %. ? GENERAL: The patient is well nourished, well hydrated in no acute distress. , The patient is oriented to time, place, and person. NECK: Supple. No lynphadenopathy, normal thyroid, no thyromegaly. LUNGS: Clear to auscultation bilaterally. no wheezes, rhonchi or rales HEART: Regular rate and rhythm, Normal heart sounds, and No murmurs or gallops GENITALIA: Normal external genitalia, Urethral meatus normal, Bladder nontender, normal vagina and normal vaginal tone, normal cervix, normal uterus, size and consistency, normal adnexa without masses or tenderness, and perineum WNL WET PREP: Not indicated ? IMPRESSION: contraceptive management ? PLAN: The risks/benefits/alternatives and personal involved for the planned exam under anesthesia, laparoscopic bilateral salpingectomy and Nexplanon removal were reviewed with the patient. Her questions were answered to her satisfaction and she desires to proceed. Consent was signed. I reviewed with her postop instructions and expectations. Patient would decline blood products or blood transfusion in a life-threatening emergency. This was indicated and signed on surgery consent ? ? I have reviewed and updated past medical and surgical history, medications and allergies Assessment & Plan Assessment/Plan (1) Nexplanon removal: (2) Consultation for sterilization:
== END | disposition home or self-care (01) ==
LOC: PAT 09-04 08:18
PROVIDERS: Anesthesiology; PCP Family Medicine; Referring Provider Obstetrics & Gynecology; Visit Provider Obstetrics & Gynecology
DX: Z01.818 Encounter for other preprocedural examination (principal)
CPT/HCPCS: 36415; 80048; 85027; 93005